=== PATIENT | female | born 1960 | race Caucasian/White ===

== ENCOUNTER 2018-12-06 21:03 | Emergency (ER) | payer BC ==
[2018-12-06] MEDS ORDERED: Albuterol/Ipratropium NEB.SOL* Albuterol 2.5 MG/Ipratropium 0.5 MG 3 ML INH ONE (21:45)
[2018-12-06] MEDS ORDERED: Albuterol 2.5 MG/3 ML NEB.SOL* (0.083%) INH ONE (21:46)
--- NOTE | 2018-12-06 21:54 | ED ---
HPI Chest Pain - HPI Summary HPI Summary: Pt is a 58 y/o F presenting to the ED with a chief complaint of L arm pain described as pressure onset around 1700 that worsened and moved to her L shoulder and L breast around 1999. The pt denies sob, diaphoresis, hx of pain similar to this, or pain with deep breaths. The pt reports nausea, mild cough, and a hx of reflux. She was a smoker for 30 years, has not smoked in 3 years, and usually uses inhalers when she gets bronchitis or respiratory illnesses. She has FHx of DE, CVA, and HTN. EMS gave her 324 ASA and 1 NTG, which the pt reports helped her pain. - History of Current Complaint Chief Complaint: EDChestPainROMI Time Seen by Provider: 12/06/18 21:18 Hx Obtained From: Patient Onset/Duration: Started Hours Ago, Resolved Timing: Lasting Hours Initial Severity: Moderate Current Severity: Mild Pain Intensity: 4 Pain Scale Used: 0-10 Numeric Chest Pain Location: Left Lateral Chest Pain Radiates: Yes Chest Pain Radiates To:: Shoulder, Arm Character: Pressure/Squeezing Aggravating Factor(s): Nothing Alleviating Factor(s): EMS Tx - ASA and NTG Associated Signs and Symptoms: Positive: Chest Pain, Nausea, Cough - from previous cold. Negative: Shortness of Breath, Diaphoresis, Other: - pain with deep breaths - Allergy/Home Medications Allergies/Adverse Reactions: Allergies Allergy/AdvReac Type Severity Reaction Status Date / Time Wap venom protein Allergy Swelling, Uncoded 07/21/18 13:54 difficulty breathing PMH/Surg Hx/FS Hx/Imm Hx Previously Healthy: No Endocrine/Hematology History: Denies: Hx Diabetes, Hx Thyroid Disease Cardiovascular History: Denies: Hx Hypertension Respiratory History: Reports: Other Respiratory Problems/Disorders Denies: Hx Asthma, Hx Chronic Obstructive Pulmonary Disease (COPD) GI History: Denies: Hx Ulcer History: Reports: Hx Kidney Stones - POSSIBLE 10 YRS AGO Denies: Hx Dialysis, Hx Renal Disease Musculoskeletal History: Reports: Hx Osteoporosis - Cancer History Hx Chemotherapy: No Hx Radiation Therapy: No - Surgical History Surgery Procedure, Year, and Place: C SECTION. APPY Infectious Disease History: No Infectious Disease History: Denies: Hx Clostridium Difficile, Hx Hepatitis, Hx Human Immunodeficiency Virus (HIV), Hx of Known/Suspected MRSA, Hx Shingles, Hx Tuberculosis, Hx Known/ Suspected VRE, Hx Known/Suspected VRSA, History Other Infectious Disease, Traveled Outside the [place] in Last 30 Days - Family History Known Family History: Positive: Cardiac Disease, Hypertension, Diabetes, Other - Stroke - Social History Alcohol Use: Occasionally Hx Substance Use: No Substance Use Type: Reports: None Hx Tobacco Use: Yes Smoking Status (MU): Former Smoker Type: Cigarettes Amount Used/How Often: 1/2 PPD Length of Time of Smoking/Using Tobacco: 30+ years Review of Systems Negative: Fever, Skin Diaphoresis Positive: Cough. Negative: Shortness Of Breath Positive: Nausea All Other Systems Reviewed And Are Negative: Yes Physical Exam - Summary Physical Exam Summary: VITAL SIGNS: Reviewed. GENERAL: Patient is a well-developed and nourished female who is lying comfortable in the stretcher. Patient is not in any acute respiratory distress. HEAD AND FACE: No signs of trauma. No ecchymosis, hematomas or skull depressions. No sinus tenderness. EYES: PERRLA, EOMI x 2, No injected conjunctiva, no nystagmus. EARS: Hearing grossly intact. Ear canals and tympanic membranes are within normal limits. MOUTH: Oropharynx within normal limits. NECK: Supple, trachea is midline, no adenopathy, no JVD, no carotid bruit, no c- spine tenderness, neck with full ROM. CHEST: Symmetric, no tenderness at palpation LUNGS: Mild expiratory wheezes bilaterally. CVS: Regular rate and rhythm, S1 and S2 present, no murmurs or gallops appreciated. ABDOMEN: Soft, non-tender. No signs of distention. No rebound no guarding, and no masses palpated. Bowel sounds are normal. EXTREMITIES: FROM in all major joints, no edema, no cyanosis or clubbing. NEURO: Alert and oriented x 3. No acute neurological deficits. Speech is normal and follows commands. SKIN: Dry and warm Triage Information Reviewed: Yes Vital Signs On Initial Exam: Initial Vitals Temp Pulse Resp BP Pulse Ox 98.5 F 87 18 152/96 95 12/06/18 21:15 12/06/18 21:15 12/06/18 21:15 12/06/18 21:15 12/06/18 21:15 Vital Signs Reviewed: Yes Diagnostics - Vital Signs Vital Signs Temp Pulse Resp BP Pulse Ox 12/06/18 21:15 98.5 F 87 18 152/96 95 - Laboratory Result Diagrams: 12/06/18 22:02 12/06/18 22:02 Lab Statement: Any lab studies that have been ordered have been reviewed, and results considered in the medical decision making process. - Radiology Chest x-ray Radiology Interpretation Completed By: ED Physician Summary of Radiographic Findings: No acute process. Pending official radiology report. - EKG 2108 Cardiac Rate: NL - 83bpm EKG Rhythm: Sinus Rhythm ST Segment: Normal Ectopy: None Chest Pain Course/Dx - Course Course Of Treatment: Pt is a 58 y/o F presenting to the ED with a chief complaint of L arm pain described as pressure onset around 1700 that worsened and moved to her L shoulder and L breast around 1999. The pt denies sob, diaphoresis, hx of pain similar to this, or pain with deep breaths. The pt reports nausea, mild cough, and a hx of reflux. Bloodwork and chemistries obtained and are WNL. Troponin of 0.00 at 22:02 and 00:32. In the ED course the patient was given albuterol INH and Duoneb INH. The patient will be discharged and was instructed to get an outpatient stress test done as soon as possible. The patient is agreeable with this plan. - Diagnoses Provider Diagnoses: Chest pain Discharge - Sign-Out/Discharge Documenting (check all that apply): Patient Departure - DC Patient Received Moderate/Deep Sedation with Procedure: No - Discharge Plan Condition: Stable Disposition: HOME Patient Education Materials: Chest Pain (DC) Referrals: Baljit Jasso MD [Primary Care Provider] - (1-2 days) Additional Instructions: Get an outpatient stress test as soon as possible. RETURN TO THE EMERGENCY DEPARTMENT FOR CHANGING OR WORSENING SYMPTOMS. FOLLOW UP WITH PCP IN 1-2 DAYS. - Billing Disposition and Condition Condition: STABLE Disposition: Home - Attestation Statements Document Initiated by Scribe: Yes Documenting Scribe: Pat Thomas Provider For Whom Chu is Documenting (Include Credential): Lindsay Guerrreo MD. Scribe Attestation: Pat Willard scribed for Lindsay Guerrero MD. on 12/07/18 at 0616. Scribe Documentation Reviewed: Yes Provider Attestation: The documentation as recorded by the Pat ospina accurately reflects the service I personally performed and the decisions made by me, Lindsay Guerrero MD. Status of Scribe Document: Viewed
[2018-12-06 22:10] LABS: ABS Basophils 0 10^3/ul (0-0.2); ABS Eosinophils 0.5 10^3/ul (0-0.6); ABS Lymphocytes 2.2 10^3/ul (1.0-4.8); ABS Monocytes 0.4 10^3/ul (0-0.8); ABS Neutrophils 3.1 10^3/ul (1.5-7.7); ABS Nucleated RBC 0 10^3/ul; Eosinophil % 7.4 %; Hematocrit 40 % (33-41); Hemoglobin 13.3 g/dL (12.0-16.0); Mean Corpuscular HGB Conc 33 g/dL (31-36); Mean Corpuscular Hemoglobin 30 pg (27-31); Mean Corpuscular Volume 92 fL (80-97); Mean Platelet Volume 8.8 fL (7.4-10.4); Nucleated Red Blood Cells % 0.1; Platelet Count 217 10^3/uL (150-450); Red Blood Count 4.36 10^6 /uL (3.70-4.87); Red Cell Distribution Width 14 % (10.5-15); White Blood Count 6.2 10^3/uL (3.5-10.8)
[2018-12-06 22:27] LABS: Albumin 3.8 g/dL (3.2-5.2); Albumin/Globulin Ratio 1.7 (1-3); BUN/Creatinine Ratio 19.3 (8-20); Calcium 8.6 mg/dL (8.6-10.3); EGFR African American 79.3 (>60); EGFR Non-African American 65.5 (>60); Globulin 2.2 g/dL (2-4); Total Bilirubin 0.2 mg/dL (0.2-1.0)
[2018-12-06 22:36] LABS: Activated Partial Thrombo Time 30.2 seconds (26.0-36.3); INR 0.8 (0.77-1.02)
[2018-12-06 23:17] LABS: Potassium 4.6 mmol/L (3.5-5.0)
[2018-12-07 01:42] VITALS: BP 143/64
== END 2018-12-07 01:42 | disposition home or self-care (01) ==
LOC: ED 21:03
DX: R07.9 Chest pain, unspecified (principal); R11.0 Nausea; R05 Cough; M79.602 Pain in left arm; Z87.891 Personal history of nicotine dependence
CPT/HCPCS: 36415; 71045; 80053; 83735; 83880; 84484; 85025; 85610; 85730; 93005; 99285; A9270-GY

== ENCOUNTER 2019-06-08 09:37 | Emergency (ER) | payer BC ==
[2019-06-08] MEDS ORDERED: Aspirin 81 mg CHEW TAB* 81 MG TAB.CHEW PO ONE (09:44)
--- NOTE | 2019-06-08 09:56 | ED ---
HPI Chest Pain - HPI Summary HPI Summary: This patient is a 58 year old F BIBA via EMS to ED with a chief complaint of chest pain since this morning. The pain is described as pressure/squeezing. 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 She had similar pain in November 2018, but denies any history of KS, HTN, DM. She states the pain does not radiate into the back. Patient received 2x NTG and 324mg Aspirin by EMS, which alleviated her symptoms. Her pain was initially rated 9/ 10 in severity, but after treatment in the ED room it is rated as 1/10 in severity. Symptoms aggravated by nothing. Symptoms alleviated by 2x nitro and 324 aspirin. Patient denies nausea, vomiting, shortness of breath, palpitations. - History of Current Complaint Chief Complaint: EDChestPainROMI Time Seen by Provider: 06/08/19 09:43 Hx Obtained From: Patient Onset/Duration: Started Hours Ago, Still Present - But alleviated significantly Timing: Constant Initial Severity: Severe - 9/10 Current Severity: Mild Pain Intensity: 1 Pain Scale Used: 0-10 Numeric Chest Pain Location: Left Anterior, Left Lateral Chest Pain Radiates: Yes Chest Pain Radiates To:: Arm, Other - Does not radiate to back Character: Pressure/Squeezing Aggravating Factor(s): Nothing Alleviating Factor(s): EMS Tx - 2x NTG, 324mg aspirin Associated Signs and Symptoms: Positive: Chest Pain. Negative: Shortness of Breath, Nausea, Palpitations, Vomiting - Allergy/Home Medications Allergies/Adverse Reactions: Allergies Allergy/AdvReac Type Severity Reaction Status Date / Time Wap venom protein Allergy Swelling, Uncoded 07/21/18 13:54 difficulty breathing PMH/Surg Hx/FS Hx/Imm Hx Endocrine/Hematology History: Denies: Hx Diabetes, Hx Thyroid Disease Cardiovascular History: Denies: Hx Hypertension Respiratory History: Reports: Other Respiratory Problems/Disorders Denies: Hx Asthma, Hx Chronic Obstructive Pulmonary Disease (COPD) GI History: Denies: Hx Ulcer History: Reports: Hx Kidney Stones - POSSIBLE 10 YRS AGO Denies: Hx Dialysis, Hx Renal Disease Musculoskeletal History: Reports: Hx Osteoporosis - Cancer History Hx Chemotherapy: No Hx Radiation Therapy: No - Surgical History Surgery Procedure, Year, and Place: C SECTION. APPY Infectious Disease History: No Infectious Disease History: Denies: Hx Clostridium Difficile, Hx Hepatitis, Hx Human Immunodeficiency Virus (HIV), Hx of Known/Suspected MRSA, Hx Shingles, Hx Tuberculosis, Hx Known/ Suspected VRE, Hx Known/Suspected VRSA, History Other Infectious Disease, Traveled Outside the [place] in Last 30 Days - Family History Known Family History: Positive: Cardiac Disease, Hypertension, Diabetes, Other - Stroke - Social History Alcohol Use: Occasionally Hx Substance Use: No Substance Use Type: Reports: None Hx Tobacco Use: Yes Smoking Status (MU): Former Smoker Type: Cigarettes Amount Used/How Often: 1/2 PPD Length of Time of Smoking/Using Tobacco: 30+ years Review of Systems Positive: Chest Pain - Radiating from left arm. Negative: Palpitations Negative: Shortness Of Breath Negative: Vomiting, Nausea All Other Systems Reviewed And Are Negative: Yes Physical Exam - Summary Physical Exam Summary: VITAL SIGNS: Reviewed. GENERAL: Patient is a well-developed and nourished female who is lying comfortable in the stretcher. Patient is not in any acute respiratory distress. HEAD AND FACE: No signs of trauma. No ecchymosis, hematomas or skull depressions. No sinus tenderness. EYES: PERRLA, EOMI x 2, No injected conjunctiva, no nystagmus. EARS: Hearing grossly intact. Ear canals and tympanic membranes are within normal limits. MOUTH: Oropharynx within normal limits. NECK: Supple, trachea is midline, no adenopathy, no JVD, no carotid bruit, no c- spine tenderness, neck with full ROM. CHEST: Symmetric, no tenderness at palpation. LUNGS: Clear to auscultation bilaterally. No wheezing or crackles. CVS: Regular rate and rhythm, S1 and S2 present, no murmurs or gallops appreciated. ABDOMEN: Soft, non-tender. No signs of distention. No rebound, no guarding, and no masses palpated. Bowel sounds are normal. EXTREMITIES: FROM in all major joints, no edema, no cyanosis or clubbing. NEURO: Alert and oriented x 3. No acute neurological deficits. Speech is normal and follows commands. SKIN: Dry and warm. Triage Information Reviewed: Yes Vital Signs On Initial Exam: Initial Vitals Temp Pulse Resp BP Pulse Ox 97.7 F 90 16 125/83 98 06/08/19 09:42 06/08/19 09:42 06/08/19 09:42 06/08/19 09:42 06/08/19 09:42 Vital Signs Reviewed: Yes Diagnostics - Vital Signs Vital Signs Temp Pulse Resp BP Pulse Ox 06/08/19 09:42 97.7 F 90 16 125/83 98 - Laboratory Result Diagrams: 06/08/19 09:56 06/08/19 09:56 Lab Statement: Any lab studies that have been ordered have been reviewed, and results considered in the medical decision making process. - Radiology CXR Radiology Interpretation Completed By: Radiologist Summary of Radiographic Findings: NO EVIDENCE FOR ACTIVE CARDIOPULMONARY DISEASE. Dr. Calzada has reviewed this radiology report. - EKG 0949 Cardiac Rate: NL - 82 BPM EKG Rhythm: Sinus Rhythm ST Segment: Normal Ectopy: None Summary of EKG Findings: NSR at 82 BPM, no ST elevations. Re-Evaluation - Re-Evaluation First Eval Re-Evaluation Time: 13:52 Comment: Discussed results with patient. Patient will be discharged home with dx of atypical chest pain. Patient understands and agrees with this plan. Chest Pain Course/Dx - Course Assessment/Plan: Blood work without any significant abnormality. 2 Troponin 4 hours apart is 0.00. EKG shows no ST elevations. Chest x-ray impression: No evidence for active cardiopulmonary disease. In the ED course the patient has remained stable. She has no complaints. She has no chest pain. The heart score is equal to 1. Therefore the patient will be discharged home with follow- up with primary care physician. The patient is hemodynamically stable alert and oriented 3. - Diagnoses Provider Diagnoses: Atypical chest pain Discharge ED - Sign-Out/Discharge Documenting (check all that apply): Patient Departure - Discharge Patient Received Moderate/Deep Sedation with Procedure: No - Discharge Plan Condition: Stable Disposition: HOME Patient Education Materials: Chest Pain (ED) Referrals: Baljit Jasso MD [Primary Care Provider] - 3 Days Additional Instructions: FOLLOW UP WITH YOUR PRIMARY CARE PROVIDER WITHIN ONE WEEK. RETURN TO THE ED FOR ANY WORSENING OR NEW SYMPTOMS. - Billing Disposition and Condition Condition: STABLE Disposition: Home - Attestation Statements Document Initiated by Scribe: Yes Documenting Scribe: Justin Ortiz Provider For Whom Scribe is Documenting (Include Credential): Tommy Calzada MD Scribe Attestation: uJstin Willard, scribed for Tommy Calzada MD on 06/08/19 at 1830. Scribe Documentation Reviewed: Yes Provider Attestation: The documentation as recorded by the scribe, Justin Ortiz accurately reflects the service I personally performed and the decisions made by me, Tommy Calzada MD Status of Scribe Document: Viewed
[2019-06-08 10:18] LABS: ABS Eosinophils 0.3 10^3/ul (0-0.6); ABS Lymphocytes 1.5 10^3/ul (1.0-4.8); ABS Monocytes 0.4 10^3/ul (0-0.8); ABS Neutrophils 3.3 10^3/ul (1.5-7.7); Eosinophil % 6.1 %; Hematocrit 42 % (35-47); Hemoglobin 14.3 g/dL (12.0-16.0); Lymphocyte % 27.2 %; Mean Corpuscular HGB Conc 34 g/dL (31-36); Mean Corpuscular Hemoglobin 31 pg (27-31); Mean Corpuscular Volume 92 fL (80-97); Mean Platelet Volume 9.1 fL (7.4-10.4); Nucleated Red Blood Cells % 0.1; Platelet Count 239 10^3/uL (150-450); Red Blood Count 4.59 10^6 /uL (3.70-4.87); Red Cell Distribution Width 14 % (10-15); White Blood Count 5.5 10^3/uL (3.5-10.8)
[2019-06-08 10:26] LABS: Activated Partial Thrombo Time 35.5 seconds (26.0-38.0); INR 0.99 (0.82-1.09)
[2019-06-08 10:28] LABS: Albumin 4.1 g/dL (3.2-5.2); Albumin/Globulin Ratio 1.6 (1-3); BUN/Creatinine Ratio 20.9 (8-20); EGFR African American 108.6 (>60); EGFR Non-African American 89.8 (>60); Globulin 2.5 g/dL (2-4); Magnesium 1.8 mg/dL (1.9-2.7); Total Bilirubin 0.5 mg/dL (0.2-1.0); Total Protein 6.6 g/dL (6.4-8.9)
[2019-06-08 10:31] LABS: CKMB ng/mL 4.1 ng/mL (0.6-6.3)
[2019-06-08 10:52] LABS: TSH (Thyroid Stimulating Horm) 1.68 mcIU/mL (0.34-5.60)
--- OUTSIDE RECORDS SUMMARY | 2019-06-08 10:55 | XMS REPORT | Continuity of Care Document ---
:1960 External Reference #:[id number] Author Name Baljit Jasso M.D. Address [address] [facility] [address] [place] [address] Problems Active Problems Provider Date Age-related osteoporosis without current Baljit Jasso M.D. 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; has been doing this "forever" and recognizes the health risks wc were discussed 05/09/19 Recreational Drug Use Denies Drug Use Tobacco Use Start: Unknown End: Patient is a former Unknown smoker Smoking Status Reviewed: 10/19/18 Patient is a former smoker Allergies, Adverse Reactions, Alerts Description No Known Drug Allergies Medications Active Medications SIG Qnty Indications Ordering Date Provider Ventolin HFA 2 puffs q4-6 hours 18gm J44.1 Silcoff, 10/19/2018 as needed Oc Smiley 108(90Base) mcg/Act Aerosol Omeprazole one po twice daily Unknown 07/21/[address] Lai apply thin layer to 30gm B02.9 Silcoff, 05/03/2018 Acetonide affected areas, 2-3 Oc Smiley 0.1% Cream times a day, for itching, discontinue when it improves Fiber / OTC one daily Unknown 04/29/2016 Potassium/ OTC one daily Unknown 04/29/2016 [facility] Vitamin B-12 1 tab daily Unknown 10/18/2015 100mcg Tablets Alendronate Sodium 1 by mouth qwk on 12tabs M85.9 Silcoff, 04/24/2015 70mg an empty stomach. Oc Smiley Tablets take w/ 8oz of water. don't eat anything or lie down for 30min after taking this med M81.0 Multivitamin I Tablet Daily 0tabs Baljit Jasso M.D. 02/12/2004 Tablet Immunizations CPT Code Status Date Vaccine Lot # [id number] Given 03/05/2015 Adacel or Boostrix, TDaP [id number] Given 02/12/2004 Influenza Immunization [id number] Given 02/12/2004 Td Immunization 35623 Given 07/16/2001 Pneumococcal Immunization U-Flu Refused 10/16/2017 Influenza,Unspecified [id number] Refused 05/01/2017 Influenza Virus Vaccine, Quadrivalent, Split, Preservative Free Vital Signs Date Vital Result Comment 05/09/2019 9:52am BP Systolic 124 mmHg BP Diastolic 86 mmHg Height 63 inches 5'3" Weight 168.50 lb BMI (Body Mass Index) 29.8 kg/m2 12/07/2018 9:42am BP Systolic 128 mmHg BP Diastolic 82 mmHg BP Systolic Recheck 119 mmHg R arm w/ auto cuff; 142/84 manual BP Diastolic Recheck 77 mmHg R arm w/ auto cuff; 142/84 manual Heart Rate 68 /min reg Respiratory Rate 14 /min not laboured Weight 162.00 lb Results Test Date Facility Test Result H/L Range Note Laboratory test 12/07/2018 [facility] Troponin-I 0.00 ng/mL <0.04 1 finding [phone] (TnI) CBC Auto Diff 12/06/2018 [facility] White Blood 6.2 10^3/uL Normal 3.5-10.8 [phone] Count Red Blood Count 4.36 10^6/uL Normal 3.70-4.87 Hemoglobin 13.3 g/dL Normal 12.0-16.0 Hematocrit 40 % Normal 33-41 Mean Corpuscular Volume 92 fL Normal 80-97 Mean Corpuscular Hemoglobin 30 pg Normal 27-31 Mean Corpuscular HGB Conc 33 g/dL Normal 31-36 Red Cell Distribution Width 14 % Normal 10.5-15 Platelet Count 217 10^3/uL Normal 150-450 Mean Platelet Volume 8.8 fL Normal 7.4-10.4 Abs Neutrophils 3.1 10^3/uL Normal 1.5-7.7 Abs Lymphocytes 2.2 10^3/uL Normal 1.0-4.8 Abs Monocytes 0.4 10^3/uL Normal 0-0.8 Abs Eosinophils 0.5 10^3/uL Normal 0-0.6 Abs Basophils 0 10^3/uL Normal 0-0.2 Abs Nucleated RBC 0 10^3/uL Granulocyte % 50.1 % Lymphocyte % 36.0 % Monocyte % 5.8 % Eosinophil % 7.4 % Basophil % 0.7 % Nucleated Red Blood Cells % 0.1 Laboratory test 12/06/2018 [facility] B-Type 90 pg/mL <=100 finding [phone] Natriuretic Peptide BNP Inr/Protime 12/06/2018 [facility] Inr 0.80 Normal 0.77-1.02 [phone] Laboratory test 12/06/2018 [facility] Partial Thrombo 30.2 Normal 26.0-36.3 finding [phone] Time PTT seconds 1 Troponin-I testing on Plasma Separator Tubes (PST) has a known false positive rate of 0.20-0.40%. All positive troponins reflex immediate secondary confirmatory testing. Procedures Date Code Description Status 04/21/2017 97483224 Mammogram Completed 01/28/2016 [id number] Colonoscopy Completed Medical Devices Description No Information Available Encounters Type Date Location Provider Dx Diagnosis Office Visit 12/07/2018 Main Office Baljit Jasso, [id number] Chest pain, 9:30a M.D. unspecified Assessments Date Code Description Provider 05/09/2019 M81.0 Age-related osteoporosis without current Baljit Jasso M.D. pathological fracture 05/09/2019 Z12.39 Encounter for other screening for malignant Baljit Jasso M.D. neoplasm of breast 05/09/2019 Z12.31 Encounter for screening mammogram for Baljit Jasso M.D. malignant neoplasm of breast 05/09/2019 Z00.00 Encounter for general adult medical Baljit Jasso M.D. examination without abnormal findings 05/09/2019 Z68.29 Body mass index (BMI) 29.0-29.9, adult Baljit Jasso M.D. 12/07/2018 R07.9 Chest pain, unspecified Baljit Jasso M.D. Plan of Treatment Future Appointment(s):05/11/2020 3:30 pm - Baljit Jasso M.D. at [facility]/03/2018 - Giovani StroudB02.9 Zoster without complicationsNew Medication:Triamcinolone Acetonide 0.1 % - apply thin layer to affected areas, 2 -3 times a day, for itching, discontinue when it improvesValacyclovir HCL 1 gm - 1 three times a day for 7 days for shinglesComments:follow all instructions apply skin cream as neededtake meds per directionsbathe area qd soap and waterwatch that fluid does not spread rash to susceptible immune compromised peopleFollow up:follow all instructions apply skin cream as needed take meds per directions bathe area qd soap and water watch that fluid does not spread rash to susceptible immune compromised people recheck 5-7 days Functional Status Description No Information Available Mental Status Description No Information Available Referrals Description No Information Available
[2019-06-08 14:28] VITALS: BP 149/73
== END 2019-06-08 14:20 | disposition home or self-care (01) ==
LOC: ED 09:37
DX: R07.89 Other chest pain (principal); Z87.891 Personal history of nicotine dependence; Z79.899 Other long term (current) drug therapy
CPT/HCPCS: 36415; 71045; 80053; 82550; 82553; 83605; 83735; 83880; 84443; 84484; 85025; 85610; 85730; 93005; 99283